=== PATIENT | male | born 1980 | race Caucasian/White ===

== ENCOUNTER 2021-05-04 13:42 | Emergency (ER) | payer BC ==
[~2021-05-04] VITALS: Ht 182.9 cm; Wt 111.3 kg
[2021-05-04 15:13] LABS: CREATININE 1.1 mg/dL (0.7-1.3); GFR 74.5; POTASSIUM 3.9 mmol/L (3.5-5.1)
[2021-05-04 15:14] LABS: BASO % 0 % (0-3); EOS % 0 % (0-3); HEMATOCRIT 42.8 % (39.0-53.0); HEMOGLOBIN 14.8 g/dL (13.0-17.5); LYMPH # 1.9 x10^3/uL (1.0-4.8); LYMPH % 28 % (24-48); MEAN CORPUSCULAR HEMOGLOBIN 33 pg (25-35); MEAN CORPUSCULAR HGB CONC 35 g/dL (31-37); MEAN CORPUSCULAR VOLUME 95 fL (79-100); MONO # 0.4 x10^3/uL (0.0-1.1); MONO % 6 % (0-9); NEUT # 4.5 x10^3uL (1.8-7.7); NEUT % 66 % (31-73); PLATELET COUNT 205 x10^3/uL (140-400); RED CELL DISTRIBUTION WIDTH 12.8 % (11.5-14.5); WHITE BLOOD COUNT 6.9 x10^3/uL (4.0-11.0)
[2021-05-04 15:19] LABS: ALBUMIN 4.3 g/dL (3.4-5.0); ALBUMIN/GLOBULIN RATIO 1.3 (1.0-1.7); TOTAL BILIRUBIN 0.5 mg/dL (0.2-1.0); TOTAL PROTEIN 7.7 g/dL (6.4-8.2)
--- NOTE | 2021-05-04 15:19 | PHYS DOC ---
Past History Past Surgical History: No Surgical History (GOSIA VORA APRN) Alcohol Use: Occasionally (GOSIA VORA APRN) General Adult EDM: Chief Complaint: HYPERTENSION HPI: HPI: Patient is a 41-year-old male presents with hypertension, numbness and tingling to his face bilaterally, and bilateral arms. Denies weakness. Patient stated his blood pressure at home was 140s over 80s. Patient denies history of hypertension. Patient states "I was feeling kind weird with numbness to my head so I took my blood pressure and it was higher than it normally is". Denies shortness of breath, fevers. (GOSIA VORA APRN) Review of Systems: Review of Systems: Constitutional: Denies fever or chills Eyes: Denies change in visual acuity HENT: Denies nasal congestion or sore throat Respiratory: Denies cough or shortness of breath Cardiovascular: Denies chest pain or edema GI: Denies abdominal pain, nausea, vomiting, bloody stools or diarrhea : Denies dysuria Musculoskeletal: Denies back pain or joint pain Integument: Denies rash Neurologic: Reports headache, numbness and tingling to his head bilaterally along with arms. Denies weakness. Endocrine: Denies polyuria or polydipsia Lymphatic: Denies swollen glands Psychiatric: Denies depression or anxiety (GOSIA VORA APRN) Allergies: Allergies: Allergies Coded Allergies Type Severity Reaction Last Updated Verified Penicillins Allergy Unknown 05/04/21 Yes (GOSIA VORA APRN) Physical Exam: PE: Constitutional: Well developed, well nourished, no acute distress, non-toxic appearance. [] HENT: Normocephalic, atraumatic, bilateral external ears normal, oropharynx moist, no oral exudates, nose normal. [] Eyes: PERRLA, EOMI, conjunctiva normal, no discharge. [] Neck: Normal range of motion, no tenderness, supple, no stridor. [] Cardiovascular:Heart rate regular rhythm, no murmur [] Lungs & Thorax: Bilateral breath sounds clear to auscultation [] Abdomen: Bowel sounds normal, soft, no tenderness, no masses, no pulsatile masses. [] Skin: Warm, dry, no erythema, no rash. [] Back: No tenderness, no CVA tenderness. [] Extremities: Bilateral arms, numbness and tingling Neurologic: Alert and oriented X 3, normal motor function, normal sensory function, no focal deficits noted. [] Psychologic: Affect normal, judgement normal, mood normal. [] (GOSIA VORA APRN) Current Patient Data: Vital Signs: Vital Signs Date Time Temp Pulse Resp B/P (MAP) Pulse Ox O2 Delivery O2 Flow Rate FiO2 05/04/21 14:08 98.0 66 16 151/83 98 Room Air (GOSIA VORA APRN) EKG: EKG: sinus rhythm, heart rate [address] elevation or depression. [] (GOSIA VORA APRN) Radiology/Procedures: Radiology/Procedures: []EXAMINATION: CT HEAD/BRAIN WO CLINICAL HISTORY: Numbness and tingling TECHNIQUE: Serial axial images without IV contrast were obtained from the vertex to the foramen magnum. CT Dose Reduction Employed: One or more of the following individualized dose reduction techniques were utilized for this examination: 1. Automated exposure control 2. Adjustment of the mA and/or kV according to patient size 3. Use of iterative reconstruction technique. COMPARISON: None FINDINGS: Acute Change: No evidence of an acute infarct or other acute parenchymal process. Hemorrhage: No evidence of acute intracranial hemorrhage. Mass Lesion/Mass Effect: No evidence of intracranial mass or extraaxial fluid collection. No significant mass effect. Parenchyma: No significant volume loss. Parenchyma otherwise within normal limits for age. Ventricles: Ventricles within normal limits for age. Paranasal Sinuses and Skull Base: Mild secretions in the ethmoid and right maxillary sinuses. Visualized skull base and soft tissues unremarkable. IMPRESSION: No evidence of acute intracranial abnormality. If concern for acute infarct, MRI is recommended for further evaluation. Electronically signed by: Timothy Salinas DO (05/04/2021 3:40 PM) [id number] XR CHEST 2V INDICATION: NUMBNESS COMPARISON STUDY: None. FINDINGS: Lungs: Normal lung volume. No pulmonary mass or consolidation. The tracheobronchial tree and hilar structures are normal. Pleura: No pleural effusion or pneumothorax. Heart and Mediastinum: The cardiomediastinal silhouette is normal. The great vessels of the thorax are normal. Bones and Soft Tissues: The bones and soft tissues are within normal limits. IMPRESSION: No acute cardiopulmonary process. Electronically signed by: Nirav Srivastava MD (05/04/2021 3:48 PM) [facility] (GOSIA VORA APRN) Heart Score: C/O Chest Pain: No Risk Factors: Risk Factors: DM, Current or recent (<one month) smoker, HTN, HLP, family history of CAD, obesity. Risk Scores: Score 0 - 3: 2.5% MACE over next 6 weeks - Discharge Home Score 4 - 6: 20.3% MACE over next 6 weeks - Admit for Clinical Observation Score 7 - 10: 72.7% MACE over next 6 weeks - Early Invasive Strategies (GOSIA VORA APRN) Course & Med Decision Making: Course & Med Decision Making Pertinent Labs and Imaging studies reviewed. (See chart for details) [] 41-year-old male presents with hypertension, numbness and tingling to his face bilaterally and also bilateral arms. Patient states his blood pressure was elevated into the 140s over 80s at home. He also had a mild headache. Patient denies history of hypertension. Denies weakness. On arrival patient's blood pressure was 150/ 80. CT of head was negative for acute abnormalities. Chest x-ray was unremarkable. All labs were unremarkable. Troponin was negative. States that his symptoms have resolved. Discussed results with patient explai carole to him he would need to call his PCP tomorrow make a follow-up appointment for possible referral and further management. Explained to patient he most likely had some anxiety which created the bilateral tingling in both arms. Patient given strict return precautions. Patient states that he understands and is okay with discharge plan. Patient is hemodynamically stable and can ambulate on his own upon disposition. (GOSIA VORA APRN) Course & Med Decision Making I oversaw on the above date of service of this patient. This patient was evaluated, examined, treated, and dispositioned from the emergency department by the mid-level practitioner. Although I was working at the time , no assistance was requested. Electronically signed, Oskar Rivera DO (OSKAR RIVERA DO) [place] Disclaimer: [place] Disclaimer: This electronic medical record was generated, in whole or in part, using a voice recognition dictation system. (GOSIA VORA APRN) Departure Departure: Impression: Primary Impression: Hypertension Qualified Codes: I10 - Essential (primary) hypertension Additional Impression: Numbness of face Disposition: HOME / SELF CARE / HOMELESS Condition: STABLE Referrals: FRANNIE LAUGHLIN (PCP) Patient Instructions: Hypertension Additional Instructions: You are seen the emergency room for hypertension and numbness and tingling of your face. While you were here in the emergency room your blood pressure was in the 150s. Would be good idea for you to measure it at home for the next few days so that you can have readings written down for your doctor in case you do need to be on medication. Please call your PCP and make a follow-up appointment as well so that you can possibly have further management or referral for neuro. All of your labs were unremarkable CT of your head and chest were both unremarkable as well. Return to the emergency room if you have worsening symptoms or concerns. EMERGENCY DEPARTMENT GENERAL DISCHARGE INSTRUCTIONS Thank you for coming to [facility] (ED) today and trusting us with you care. We trust that you had a positivie experience in our Emergency Department. If you wish to speak to the department management, you may call the director at [phone]. YOUR FOLLOW UP INSTRUCTIONS ARE FOLLOWS: 1. Do you have a private Doctor? If you do not have a private doctor, please ask for a resource list of physicians or clinics that may be able to assist you with follow up care. 2. The Emergency Physician has interpreted your x-rays. The X-Ray specialist will also review them. If there is a change in the findings, you will be notified in 48 hours when at all possible. 3. A lab test or culture has been done, your results will be reviewed and you will be notified if you need a change in treatment. ADDITIONAL INSTRUCTIONS AND INFORMATION: 1. Your care today has been supervised by a physician who is specially trained in emergency care. Many problems require more than one evaluation for a complete diagnosis and treatment. We recommend that you schedule your follow up appointment as recommended to ensure complete treatment of you illness or injury. If you are unable to obtain follow up care and continue to have a problem, or if your condition worsens, we recommend that you return to the ED. 2. We are not able to safely determine your condition over the phone nor are we able to give sound medical advice over the phone. For these safety reasons, if you call for medical advice we will ask you to come to the ED for further evaluation. 3. If you have any questions regarding these discharge instructions please call the ED at [phone]. SAFETY INFORMATION: In the interest of safety, wellness, and injury prevention; we encourage you to wear your sealbelt, if you smoke; quite smoking, and we encourage family to use a protective helmet for bicycling and other sporting events that present an increased risk for head injury. IF YOUR SYMPTOMS WORSEN OR NEW SYMPTOMS DEVELOP, OR YOU HAVE CONCERNS ABOUT YOUR CONDITION; OR IF YOUR CONDITION WORSENS WHILE YOU ARE WAITING FOR YOUR FOLLOW UP APPOINTMENT; EITHER CONTACT YOUR PRIMARY CARE DOCTOR, THE PHYSICIAN WHOSE NAME AND NUMBER YOU WERE GIVEN, OR RETURN TO THE ED IMMEDIATELY. GOSIA VORA APRN May 04, 2021 15:18 OSKAR RIVERA DO May 05, 2021 07:58
--- NOTE | 2021-05-04 15:42 | RAD ---
EXAMINATION: CT HEAD/BRAIN WO CLINICAL HISTORY: Numbness and tingling TECHNIQUE: Serial axial images without IV contrast were obtained from the vertex to the foramen magnu m. CT Dose Reduction Employed: One or more of the following individualized dose reduction techniques wer e utilized for this examination: 1. Automated exposure control 2. Adjustment of the mA and/or kV ac cording to patient size 3. Use of iterative reconstruction technique. COMPARISON: None FINDINGS: Acute Change: No evidence of an acute infarct or other acute parenchymal process. Hemorrhage: No evidence of acute intracranial hemorrhage. Mass Lesion/Mass Effect: No evidence of intracranial mass or extraaxial fluid collection. No signific ant mass effect. Parenchyma: No significant volume loss. Parenchyma otherwise within normal limits for age. Ventricles: Ventricles within normal limits for age. Paranasal Sinuses and Skull Base: Mild secretions in the ethmoid and right maxillary sinuses. Visuali zed skull base and soft tissues unremarkable. IMPRESSION: No evidence of acute intracranial abnormality. If concern for acute infarct, MRI is recommended for f urther evaluation. Electronically signed by: Timothy Salinas DO (05/04/2021 3:40 PM) [id number]
--- NOTE | 2021-05-04 15:50 | RAD ---
XR CHEST 2V INDICATION: NUMBNESS COMPARISON STUDY: None. FINDINGS: Lungs: Normal lung volume. No pulmonary mass or consolidation. The tracheobronchial tree and hilar st ructures are normal. Pleura: No pleural effusion or pneumothorax. Heart and Mediastinum: The cardiomediastinal silhouette is normal. The great vessels of the thorax ar e normal. Bones and Soft Tissues: The bones and soft tissues are within normal limits. IMPRESSION: No acute cardiopulmonary process. Electronically signed by: Nirav Srivastava MD (05/04/2021 3:48 PM) [facility]
--- NOTE | 2021-05-04 16:12 | EKG ---
[address] [address] Test Date: 2021-05-04 Test Time: 15:01:00 Pat Name: ROSIE ORTEGA Department: Room: Gender: M Gold Leaf Gilder: NOAH : 1980 Requested By: GOSIA VORA Order Number: [id number] Reading MD: Measurements Intervals [place] Rate: 68 P: 29 MI: 162 QRS: -2 QRSD: 92 T: 16 QT: 394 QTc: 419 Interpretive Statements SINUS RHYTHM LEFTWARD AXIS R-S TRANSITION ZONE IN V LEADS DISPLACED TO THE RIGHT OTHERWISE NORMAL ECG RI6.02 No previous ECG available for comparison
[2021-05-04 17:14] VITALS: BP 135/91
== END 2021-05-04 17:17 | disposition home or self-care (01) ==
LOC: ER 13:42
DX: I10 Essential (primary) hypertension (principal); R20.2 Paresthesia of skin; R53.1 Weakness; Z88.0 Allergy status to penicillin
CPT/HCPCS: 36415; 70450; 71046; 80053; 84484; 85025; 93005; 99285